=== PATIENT | male | born 1960 | race Hispanic/Latino ===

== ENCOUNTER 2018-03-06 04:48 | Emergency (ER) | payer MEDICAID, OTHER ==
[2018-03-06] MEDS ORDERED: Sodium Chloride 0.9% 1,000 ML IV STA (05:14)
--- NOTE | 2018-03-06 05:14 | ED PDOC ---
Arrival/HPI - General Chief Complaint: GI Problem Time Seen by Provider: 03/06/18 05:11 Historian: Patient - History of Present Illness Narrative History of Present Illness (Text): 03/06/18 05:16 57 year old male, whose past medical history includes hypertension , presents to the emergency department complaining of vomiting for the past day. Patient admits to drinking a pint of rum last night. Patient is not taking his hypertension medication for the past 3 days because he was told they would give him cancer. Patient denies any fever, chills, chest pain, shortness of breath, nausea, vomiting, diarrhea, urinary symptoms, back pain, neck pain, headache, dizziness, or any other complaints. Symptom Onset: Gradual Symptom Course: Unchanged Activities at Onset: Light Past Medical History - Provider Review Nursing Documentation Reviewed: Yes - Cardiac Hx Hypertension: Yes - Pulmonary Hx Respiratory Disorders: No - Neurological Hx Neurological Disorder: No - HEENT Hx HEENT Disorder: No - Endocrine/Metabolic Hx Diabetes Mellitus Type 2: Yes - Hematological/Oncological Hx Blood Disorders: No - Psychiatric Hx Substance Use: No Family/Social History - Physician Review Nursing Documentation Reviewed: Yes Family/Social History: No Known Family HX Smoking Status: Light Smoker < 10 Cigarettes Daily Hx Alcohol Use: Yes Frequency of alcohol use: Few days per week Hx Substance Use: No Allergies/Home Meds Allergies/Adverse Reactions: Allergies No Known Allergies Allergy (Verified 03/06/18 05:01) Home Medications: Home Meds Medication Instructions Recorded Confirmed Valsartan [Diovan] 80 mg PO BID 03/06/18 03/06/18 Review of Systems - Physician Review All systems were reviewed & negative as marked: Yes - Review of Systems Constitutional: absent: Fevers, Other (Chills) Respiratory: absent: SOB Cardiovascular: absent: Chest Pain Gastrointestinal: Vomiting. absent: Diarrhea, Nausea Genitourinary Male: absent: Dysuria, Frequency, Hematuria Musculoskeletal: absent: Back Pain, Neck Pain Neurological: absent: Headache, Dizziness Physical Exam Vital Signs Reviewed: Yes Vital Signs Temp Pulse Resp BP Pulse Ox 03/06/18 12:06 98.2 F 92 H 18 140/78 98 03/06/18 11:18 98.4 F 99 H 22 169/89 H 98 03/06/18 10:34 65 18 141/74 100 03/06/18 09:00 98.2 F 66 18 145/78 100 03/06/18 07:14 64 18 148/85 99 03/06/18 05:02 97.9 F 90 18 153/90 H 100 Temperature: Afebrile Blood Pressure: Hypertensive Pulse: Regular Respiratory Rate: Normal Appearance: Positive for: Well-Appearing, Non-Toxic, Comfortable, Other ( Appears intoxicated) Pain Distress: None Mental Status: Positive for: Alert and Oriented X 3 - Systems Exam Head: Present: Atraumatic, Normocephalic Pupils: Present: PERRL Extroacular Muscles: Present: EOMI Conjunctiva: Present: Normal Mouth: Present: Moist Mucous Membranes Neck: Present: Normal Range of Motion Respiratory/Chest: Present: Clear to Auscultation, Good Air Exchange. No: Respiratory Distress, Accessory Muscle Use Cardiovascular: Present: Regular Rate and Rhythm, Normal S1, S2. No: Murmurs Abdomen: No: Tenderness, Distention, Peritoneal Signs Back: Present: Normal Inspection Upper Extremity: Present: Normal Inspection. No: Cyanosis, Edema Lower Extremity: Present: Normal Inspection. No: Edema Neurological: Present: GCS=15, CN II-XII Intact, Speech Normal Skin: Present: Warm, Dry, Normal Color. No: Rashes Psychiatric: Present: Alert, Oriented x 3, Normal Insight, Normal Concentration , Other (Appears intoxicated) Medical Decision Making ED Course and Treatment: 03/06/18 05:12 Impression: 57 year old male presents complaining of vomiting for the past day. Patient vomited 3 times. Admits to drinking a pint of rum. Patient appears drunk. Plan: -- Labs -- IV Fluids, Zofran Inj -- Reassess and disposition Progress Notes: Patient sleeping comfortably in the emergency department . Awaiting sobriety. - Lab Interpretations Lab Results: 03/06/18 05:20 03/06/18 05:20 Lab Results 03/06/18 11:00: Troponin I < 0.01 03/06/18 05:20: Alcohol, Quantitative 276 H 03/06/18 05:20: Sodium 143, Potassium 3.4 L, Chloride 103, Carbon Dioxide 25, Anion Gap 19, BUN 19, Creatinine 0.8, Est GFR ( Amer) > 60, Est GFR (Non- Af Amer) > 60, Random Glucose 140 H, Calcium 8.3 L 03/06/18 05:20: WBC 10.2, RBC 5.19, Hgb 16.1, Hct 45.3, MCV 87.3, MCH 31.0, MCHC 35.5, RDW 14.0, Plt Count 375, MPV 9.3, Gran % 47.8 L, Lymph % (Auto) 35.9 H, [place] % (Auto) 15.6 H, Eos % (Auto) 0.4 L, Baso % (Auto) 0.3, Gran # 4.86, Lymph # (Auto) 3.7 H, [place] # (Auto) 1.6 H, Eos # (Auto) 0.0, Baso # (Auto) 0.03 I have reviewed the lab results: Yes - Medication Orders Current Medication Orders: Discontinued Medications Sodium Chloride (Sodium Chloride 0.9%) 1,000 mls @ 999 mls/hr IV .Q1H1M STA Stop: 03/06/18 06:14 Last Admin: 03/06/18 05:41 Dose: 999 mls/hr eMAR Start Stop Document 03/06/18 05:41 AD (Rec: 03/06/18 05:41 AD [id number]) Intravenous Solution Start Date 03/06/18 Start Time 05:41 Ondansetron HCl (Zofran Inj) 4 mg IVP STAT STA Stop: 03/06/18 05:15 Last Admin: 03/06/18 05:41 Dose: 4 mg IVP Administration Document 03/06/18 05:41 AD (Rec: 03/06/18 05:41 AD [id number]) Charges for Administration # of IVP Administrations 1 Ondansetron HCl (Zofran Inj) 4 mg IVP STAT STA Stop: 03/06/18 08:22 Last Admin: 03/06/18 08:27 Dose: 4 mg IVP Administration Document 03/06/18 08:27 [email or web address] (Rec: 03/06/18 08:27 [email or web address] [id number]) Charges for Administration # of IVP Administrations 1 - Transfer of Care Patient signed out to Dr:: Ledy Other: Pending sobriety - Scribe Statement The provider has reviewed the documentation as recorded by the Mariya Champion Provider Scribe Attestation: All medical record entries made by the Attilaibjenny were at my direction and personally dictated by me. I have reviewed the chart and agree that the record accurately reflects my personal performance of the history, physical exam, medical decision making, and the department course for this patient. I have also personally directed, reviewed, and agree with the discharge instructions and disposition. Disposition/Present on Arrival - Present on Arrival Any Indicators Present on Arrival: No History of DVT/PE: No History of Uncontrolled Diabetes: No Urinary Catheter: No History of Decub. Ulcer: No History Surgical Site Infection Following: None - Disposition Have Diagnosis and Disposition been Completed?: Yes Diagnosis: Alcohol intoxication Disposition: HOME/ ROUTINE Disposition Time: 07:00 (signed out to incoming physician due to shift change) Condition: STABLE Discharge Instructions (ExitCare): Alcohol Abuse and Alcoholism (DC) Forms: [employer] (Danish)
[2018-03-06 05:56] LABS: BASO # 0.03 K/mm3 (0.0-2.0); BASO % 0.3 % (0.0-3.0); EOS % 0.4 % (1.5-5.0); GRAN # 4.86 (1.4-6.5); GRAN % 47.8 % (50.0-68.0); HEMOGLOBIN 16.1 g/dL (14.0-18.0); LYMPH # 3.7 (1.2-3.4); LYMPH % 35.9 % (22.0-35.0); MEAN CELL VOLUME 87.3 fl (80.0-105.0); MEAN CORPUSCULAR HGB CONC 35.5 g/dl (31.0-37.0); MEAN PLATELET VOLUME 9.3 fl (7.0-11.0); MONO # 1.6 (0.1-0.6); MONO % 15.6 % (1.0-6.0); RBC 5.19 10^6/uL (3.5-6.1); WHITE BLOOD COUNT 10.2 10^3/ul (4.5-11.0)
[2018-03-06 06:36] LABS: BLOOD UREA NITROGEN 19 mg/dL (7-21); CALCIUM 8.3 mg/dL (8.4-10.5); GFR NON-AFRICAN AMERICAN > 60
[2018-03-06 11:19] VITALS: O2SAT 98
--- NOTE | 2018-03-06 11:51 | ED PDOC ---
Physical Exam - Physical Exam Narrative Physical Exam (Text): Signed out to me at change of shift pending sobriety. Patient observed in emergency department , awoke, alert, stable for discharge. While sober, patient noted that he has been having chest pain for 3 days. Troponin sent and negative. Vital Signs Temp Pulse Resp BP Pulse Ox 03/06/18 11:18 98.4 F 99 H 22 169/89 H 98 03/06/18 10:34 65 18 141/74 100 03/06/18 09:00 98.2 F 66 18 145/78 100 03/06/18 07:14 64 18 148/85 99 03/06/18 05:02 97.9 F 90 18 153/90 H 100 Medical Decision Making - Lab Interpretations Lab Results: 03/06/18 05:20 03/06/18 05:20 Lab Results 03/06/18 11:00: Troponin I < 0.01 03/06/18 05:20: Alcohol, Quantitative 276 H 03/06/18 05:20: Sodium 143, Potassium 3.4 L, Chloride 103, Carbon Dioxide 25, Anion Gap 19, BUN 19, Creatinine 0.8, Est GFR ( Amer) > 60, Est GFR (Non- Af Amer) > 60, Random Glucose 140 H, Calcium 8.3 L 03/06/18 05:20: WBC 10.2, RBC 5.19, Hgb 16.1, Hct 45.3, MCV 87.3, MCH 31.0, MCHC 35.5, RDW 14.0, Plt Count 375, MPV 9.3, Gran % 47.8 L, Lymph % (Auto) 35.9 H, [place] % (Auto) 15.6 H, Eos % (Auto) 0.4 L, Baso % (Auto) 0.3, Gran # 4.86, Lymph # (Auto) 3.7 H, [place] # (Auto) 1.6 H, Eos # (Auto) 0.0, Baso # (Auto) 0.03 - Medication Orders Current Medication Orders: Discontinued Medications Sodium Chloride (Sodium Chloride 0.9%) 1,000 mls @ 999 mls/hr IV .Q1H1M STA Stop: 03/06/18 06:14 Last Admin: 03/06/18 05:41 Dose: 999 mls/hr eMAR Start Stop Document 03/06/18 05:41 AD (Rec: 03/06/18 05:41 AD [id number]) Intravenous Solution Start Date 03/06/18 Start Time 05:41 Ondansetron HCl (Zofran Inj) 4 mg IVP STAT STA Stop: 03/06/18 05:15 Last Admin: 03/06/18 05:41 Dose: 4 mg IVP Administration Document 03/06/18 05:41 AD (Rec: 03/06/18 05:41 AD [id number]) Charges for Administration # of IVP Administrations 1 Ondansetron HCl (Zofran Inj) 4 mg IVP STAT STA Stop: 03/06/18 08:22 Last Admin: 03/06/18 08:27 Dose: 4 mg IVP Administration Document 03/06/18 08:27 [email or web address] (Rec: 03/06/18 08:27 [email or web address] [id number]) Charges for Administration # of IVP Administrations 1 Disposition/Present on Arrival - Present on Arrival Any Indicators Present on Arrival: No History of DVT/PE: No History of Uncontrolled Diabetes: No Urinary Catheter: No History of Decub. Ulcer: No History Surgical Site Infection Following: None - Disposition Have Diagnosis and Disposition been Completed?: Yes Diagnosis: Alcohol intoxication Disposition: HOME/ ROUTINE Disposition Time: 11:51 Patient Plan: Discharge Condition: STABLE Discharge Instructions (ExitCare): Alcohol Abuse and Alcoholism (DC) Forms: [employer] (Lao)
[2018-03-06 12:07] VITALS: BP 140/78; PULSE 92; RESP 18; TEMP 98.2
== END 2018-03-06 12:07 | disposition home or self-care (01) ==
LOC: ED 04:48
DX: F10.129 Alcohol abuse with intoxication, unspecified (principal); E11.9 Type 2 diabetes mellitus without complications; I10 Essential (primary) hypertension; F17.210 Nicotine dependence, cigarettes, uncomplicated
CPT/HCPCS: 80048; 84484; 85025; 96374; 96376; 99284; G0480; J2405; J7030

== ENCOUNTER 2018-03-07 03:12 | Emergency (ER) | payer MEDICAID, OTHER ==
[2018-03-07 03:43] VITALS: BMI 29.0
[2018-03-07 03:47] VITALS: TEMP 97.9
--- NOTE | 2018-03-07 04:33 | ED PDOC ---
Arrival/HPI <Veronica Myers - Last Filed: 03/07/18 05:59> - General Historian: Patient - History of Present Illness Time/Duration: 1-3 hours Symptom Onset: Gradual Symptom Course: Unchanged <Duglas Lincoln - Last Filed: 03/07/18 06:17> - General Chief Complaint: Alcohol Ingestion Time Seen by Provider: 03/07/18 03:13 - History of Present Illness Narrative History of Present Illness (Text): 03/07/18 04:34 57 year old male, whose past medical history includes hypertension , presents to the emergency department for alcohol intoxication and vomiting. Patient was in the ED yesterday for the same complaint. Patient denies any fever, chills, chest pain, shortness of breath, abdominal pain, or urinary symptoms. (Duglas Lincoln) Past Medical History - Provider Review Nursing Documentation Reviewed: Yes - Travel History Have you recently traveled outside [place] w/in the past 3 mons?: No - Cardiac Hx Hypertension: Yes - Pulmonary Hx Respiratory Disorders: No - Neurological Hx Neurological Disorder: No - HEENT Hx HEENT Disorder: No - Renal Hx Renal Disorder: No - Endocrine/Metabolic Hx Diabetes Mellitus Type 2: Yes - Hematological/Oncological Hx Blood Disorders: No - Psychiatric Hx Substance Use: No - Anesthesia Hx Anesthesia: No <Duglas Lincoln - Last Filed: 03/07/18 06:17> Family/Social History - Physician Review Nursing Documentation Reviewed: Yes Family/Social History: No Known Family HX Smoking Status: Light Smoker < 10 Cigarettes Daily Hx Alcohol Use: Yes Hx Substance Use: No <Duglas Lincoln - Last Filed: 03/07/18 06:17> Allergies/Home Meds <Veronica Myers - Last Filed: 03/07/18 05:59> <Duglas Lincoln - Last Filed: 03/07/18 06:17> Allergies/Adverse Reactions: Allergies No Known Allergies Allergy (Verified 03/07/18 03:43) Home Medications: Home Meds Medication Instructions Recorded Confirmed No Known Home Med 03/07/18 03/07/18 Review of Systems - Review of Systems Systems not reviewed;Unavailable: Intoxicated <Duglas Lincoln - Last Filed: 03/07/18 06:17> Physical Exam - Physical Exam Physical Exam Limitations: Intoxication Vital Signs Reviewed: Yes Temperature: Afebrile Blood Pressure: Hypertensive Pulse: Regular Respiratory Rate: Normal Appearance: Positive for: Other (Intoxicated) - Systems Exam Head: Present: Atraumatic, Normocephalic Pupils: Present: PERRL Extroacular Muscles: Present: EOMI Conjunctiva: Present: Normal Mouth: Present: Moist Mucous Membranes Respiratory/Chest: Present: Clear to Auscultation. No: Respiratory Distress, Accessory Muscle Use, Wheezes Cardiovascular: Present: Regular Rate and Rhythm, Normal S1, S2. No: Murmurs Abdomen: Present: Normal Bowel Sounds. No: Tenderness, Distention, Peritoneal Signs Upper Extremity: Present: Normal Inspection. No: Cyanosis, Edema Lower Extremity: Present: Normal Inspection. No: Edema Neurological: Present: Other (Patient refused neuro exam, intoxicated) Skin: Present: Warm, Dry, Normal Color. No: Rashes Psychiatric: Present: Intoxicated <Duglas Lincoln - Last Filed: 03/07/18 06:17> Vital Signs Temp Pulse Resp BP Pulse Ox 03/07/18 03:46 97.9 F 88 16 144/74 98 Medical Decision Making <Veronica Myers - Last Filed: 03/07/18 05:59> Reassessment Condition: Re-examined, Improved <Duglas Lincoln - Last Filed: 03/07/18 06:17> ED Course and Treatment: Patient Seen With Resident: In agreement with resident note which contains more details about the patient. Patient was seen and evaluated with resident. Came up with plan and treatment together. 57 year old male presents for alcohol intoxication and vomiting. Plan: -- Sobreity -- Reassess and disposition (Veronica Myers) 03/07/18 04:36 Impression: 57 year old male presents to the ED with alcohol intoxication and vomiting. Patient appears drunk. Plan: -- Reassess and disposition Progress Notes: 03/07/18 04:38 Patient sleeping on the chair in the emergency department . Awaiting sobriety. 03/07/18 06:14 - Patient is stable for discharge (Duglas Lincoln) - PA / WEB SERVICES ARCHITECT / Resident Statement ANGELLA has reviewed & agrees with the documentation as recorded. ANGELLA has examined the patient and agrees with the treatment plan. - Scribe Statement The provider has reviewed the documentation as recorded by the Scribe <Veronica Myers - Last Filed: 03/07/18 05:59> <Duglas Lincoln - Last Filed: 03/07/18 06:17> - Scribe Statement Jayne Champion Provider Scribe Attestation: All medical record entries made by the Scribe were at my direction and personally dictated by me. I have reviewed the chart and agree that the record accurately reflects my personal performance of the history, physical exam, medical decision making, and the department course for this patient. I have also personally directed, reviewed, and agree with the discharge instructions and disposition. (Veronica Myers) Disposition/Present on Arrival <Veronica Myers - Last Filed: 03/07/18 05:59> - Present on Arrival Any Indicators Present on Arrival: No History of DVT/PE: No History of Uncontrolled Diabetes: No Urinary Catheter: No History of Decub. Ulcer: No History Surgical Site Infection Following: None - Disposition Have Diagnosis and Disposition been Completed?: Yes Disposition Time: 06:14 Patient Plan: Discharge <Duglas Lincoln - Last Filed: 03/07/18 06:17> - Disposition Diagnosis: Alcohol intoxication Disposition: HOME/ ROUTINE Condition: IMPROVED Additional Instructions: DAVID GOULD, thank you for letting us take care of you today. Your provider was Veronica Myers MD and you were treated for alcohol intoxication. The emergency medical care you received today was directed at your acute symptoms. If you were prescribed any medication, please fill it and take as directed. It may take several days for your symptoms to resolve. Return to the Emergency Department if your symptoms worsen, do not improve, or if you have any other problems. Please contact your doctor or call one of the physicians/clinics you have been referred to that are listed on the Patient Visit Information form that is included in your discharge packet. Bring any paperwork you were given at discharge with you along with any medications you are taking to your follow up visit. Our treatment cannot replace ongoing medical care by a primary care provider outside of the emergency department. Thank you for allowing the [facility] team to be part of your care today. If you had an X-Ray or CT scan: A Radiologist will review the ED reading if any change in treatment is needed we will contact you. If you had a blood, urine, or wound culture: It will take several days for the results, if any change in treatment is needed we will contact you. If you had an STI test: It will take 48 hours for the results. Please call after 1 week if you have not heard back. Forms: [employer] (Kazakh)
[2018-03-07 06:22] VITALS: BP 137/60; PULSE 82; RESP 17; O2SAT 100
== END 2018-03-07 06:20 | disposition home or self-care (01) ==
LOC: ED 03:12
DX: F10.129 Alcohol abuse with intoxication, unspecified (principal); E11.9 Type 2 diabetes mellitus without complications; I10 Essential (primary) hypertension; F17.210 Nicotine dependence, cigarettes, uncomplicated